=== PATIENT | female | born 1965 | race Caucasian/White ===

== ENCOUNTER 2023-11-12 18:48 | Inpatient (IN) | payer MEDICARE, OTHER, SELFPAY ==
[2023-11-12 16:36] VITALS: BP 156/105
[2023-11-12 16:53] LABS: % Basophils 0.4 % (0-2); % Eosinophils 1.1 % (0-6); % Immature Granulocytes 0.3 % (0-0.5); % Lymphocytes 13.8 % (20.5-51.1); % Monocytes 6.8 % (1.7-9.3); % Neutrophils 77.6 % (42.2-75.2); Absolute Basophils 0.1 10^3/uL (0-0.2); Absolute Eosinophils 0.2 10^3/uL (0-0.7); Absolute Lymphocytes 1.9 10^3/uL (1.2-3.4); Absolute Monocytes 0.9 10^3/uL (0.1-0.6); Absolute Neutrophils 10.5 10^3/uL (1.4-6.5); Hematocrit 39.8 % (37.0-47.0); Hemoglobin 13.5 g/dL (12.0-16.0); Mean Corp Hgb Conc. 33.9 g/dL (33.0-37.0); Mean Corpuscular Hgb 29.5 pg (27.0-31.0); Mean Corpuscular Volume 87.1 fL (81.0-99.0); Mean Platelet Volume 9.1 fL (7.4-10.4); Nucleated Red Blood Cells % 0 %; Platelet Count 339 10^3/uL (130-400); Red Blood Cell Count 4.57 10^6/uL (4.20-5.40); White Blood Cell Count 13.6 10^3/uL (4.8-10.8)
[2023-11-12 17:12] LABS: ALT (SGPT) 11 U/L (0-35); AST (SGOT) 16 U/L (14-36); Albumin 4.6 g/dl (3.5-5.0); Alkaline Phosphatase 93 U/L (38-126); Blood Urea Nitrogen 10 mg/dl (7-17); Carbon Dioxide 25 mmol/L (22-30); Chloride 102 mmol/L (98-107); Glucose 123 mg/dl (70-99); Potassium 3.7 mmol/L (3.5-5.1); Sodium 137 mmol/L (135-145); Total Bilirubin 0.5 mg/dl (0.2-1.3); Total Protein 7.3 g/dl (6.3-8.2); eGFR > 60.00
--- NOTE | 2023-11-12 17:27 | ED.GENMED ---
History of Present Illness
General
Chief Complaint: Skin Problem
Source: patient and family
Exam Limitations: none
Time Seen by Provider: 11/12/23 17:16
Nursing documentation reviewed up to this point in time: agreed with
Travel History
Have you had any contact with someone who has COVID-19?: No
Do you have any symptoms of coronavirus? Fever > 100 degrees, chills, cough, shortness of breath, sore throat, loss of taste or smell, muscle aches, or headache?: No
History of Present Illness
History of Present Illness:
58-year-old female with past medical history of hyperlipidemia hypothyroidism anxiety presenting to the emergency department today with concerns of right pointer finger redness and swelling worsening to the base of the finger mainly on the dorsal
aspect over the past 4 days was seen at the primary care office yesterday started on doxycycline and has taken 3 doses so far of oral antibiotics without any improvement. Did notice some chills and nausea today but denies any specific fevers.
Patient has significantly increased discomfort with range of motion at the MCP.
Review of Systems
Review of Systems
Allergies reviewed?: Yes
All Other Systems: ROS reviewed and negative except as documented in HPI and ROS
Phy Exam
Physical Exam
Physical Exam:
GENERAL: Alert , in no apparent distress
EYE: pupils equal and reactive
NECK: Supple, no significant adenopathy.
ENT: o/p clr, mmm.
CARDIAC: Regular rate and rhythm .
LUNGS: Clear breath sounds bilaterally, no acute respiratory distress, no wheezes/rales/rhonchi
ABDOMEN: Soft, without focal tenderness, no r/g, no cvat
NEUROLOGICAL: Alert and oriented, no focal neuro deficits
SKIN: Warm and dry, skin intact.
MUSCULOSKELETAL: Swelling to the right index finger mainly to the area between the MCP and PIP there is some redness streaking into the dorsal aspect and palmar aspect of the hand with some swelling into the hand as well. Significant decreased
range of motion at the MCP joint and PIP. No change in range of motion of the wrist. No specific pain at the flexor tendon. Well perfused.
PSYCH: Normal and appropriate interaction.
Course
Orders/Labs/Results
Orders:
Orders
11/12/23 16:45
Complete Blood Count/With Diff Urgent
Comprehensive Metabolic Panel Urgent
11/12/23 17:29
CR Hand - Right Min 3 Views Urgent
Comment:
Reason For Exam: 2nd digit swelling pain
11/12/23 17:55
Vancomycin [Vancocin] 2,000 mg 0.9% Sodium Chloride 500 ml [Nss] 500 ml IV NOW
Abnormal Lab Results
11/12/23
16:45
WBC 13.6 H 10^3/uL
(4.8-10.8)
Absolute Neuts (auto) 10.5 H 10^3/uL
(1.4-6.5)
Absolute Monos (auto) 0.9 H 10^3/uL
(0.1-0.6)
Neutrophils % 77.6 H %
(42.2-75.2)
Lymphocytes % 13.8 L %
(20.5-51.1)
Glucose 123 H mg/dl
(70-99)
11/12/23 16:45
11/12/23 16:45
Vital Signs
Initial and Last Documented VS:
Initial Vital Signs
Temp Pulse Resp BP Pulse Ox
98.8 F 86 18 156/105 98
11/12/23 16:36 11/12/23 16:36 11/12/23 16:36 11/12/23 16:36 11/12/23 16:36
Last Documented Vital Signs
Temp Pulse Resp BP Pulse Ox
98.8 F 86 18 156/105 98
11/12/23 16:36 11/12/23 16:36 11/12/23 16:36 11/12/23 16:36 11/12/23 16:36
MDM/Problems Addressed
MDM/Problems Addressed:
58-year-old female presenting to the emergency department today with concerns of worsening swelling to the right index finger over the past 4 days started doxycycline yesterday and took 3 total doses. Has had some chills and nausea but no fevers
vital signs normal upon arrival. White count 13.6. Concern for significant worsening infection despite outpatient antibiotics. Plan for IV antibiotics and admission Case discussed with orthopedics that would be following the patient. Patient
started on vancomycin with concerns of some purulence. Patient additionally will be splinted here in the ER and admitted.
*Critical Care Note
Total Time (30-74mins, 75-104mins- exclusive of procedures): Not Applicable
ED Attending Note
-
Portions of this chart may have been created with voice recognition software.� Occasional wrong word or��sound alike� substitutions may have occurred due to the inherent limitations of voice recognition software.
Discharge Plan
Departure
Patient Disposition: Admit
Date of Disposition: 11/12/23
Time of Disposition: 18:33
Admit to: Med/Surg
Admit to doctor: Rom
Presentation/result/management discussed w/ accepting MD/DO: Hospitalist
Patient with high blood pressure during this ER visit?: No
Condition: Good
Covid-19: Not Applicable
Discharge Problem:
Finger infection
Prescriptions:
No Action
clonazepam 0.5 mg tablet
0.5 mg PO HS
Patient Comments:
11/12/2023: last filled 10/10/23, 90 tabs for 90 days from [facility]
cyanocobalamin (vitamin B-12) [Vitamin B-12] 1,000 mcg Tablet
1,000 mcg PO DAILY
hydrocodone-acetaminophen 10-325 mg tablet
1 tab PO QID PRN (Reason: moderate pain)
Patient Comments:
11/12/2023: last filled 11/07/23, 120 tabs for 30 days from [facility]
citalopram 20 mg tablet
20 mg PO DAILY
baclofen 10 mg tablet
10 mg PO TID PRN (Reason: muscle spasms)
levothyroxine 50 mcg tablet
50 mcg PO DAILY@0700
rosuvastatin 10 mg tablet
10 mg PO DAILY
biotin 1 mg Tablet
1 mg PO DAILY
turmeric 400 mg Capsule
400 mg PO DAILY
Vitamin K
1 tab PO DAILY
Referrals:
Tiera Riley DO [Family Provider] -
Interventions
Interventions:
*Risk Screen - Suicide Last Done: 11/12/23 16:36
*General Assessment Last Done: 11/12/23 16:36
*Neglect/Abuse Screening Last Done: 11/12/23 16:36
*ED COVID-19 Vaccine History Last Done: 11/12/23 17:46
--- NOTE | 2023-11-12 18:12 | HPS.HSE ---
Addendum entered and electronically signed by Elmo Heller MD 11/12/23 18:47:
I saw and examined the patient.
The [employer] or PA's note was reviewed and I agree with the note.
Comment:
58-year-old female with past medical history of hyperlipidemia, hypothyroidism, anxiety presenting for right index finger redness and swelling.� Began on Saturday, with some redness and swelling, worsening despite antibiotics that were started
yesterday (doxycycline).� Further, symptoms of nausea, chills.� Able to move finger with no difficulty.� Swelling to right index finger, , Erythema to the dorsal aspect and palmar aspect of the hand.� Tenderness upon palpation.� Afebrile,
normotensive, pulse 86.� White count�13.6..� No imaging yet.� Plan�vancomycin, Ortho and ID consult.� Blood cultures.� IVF as needed.� CT hand w/ cont
Original Note:
Family Physician
-
Family Physician: Tiera Riley
Chief Complaint
-
right point finger wound
History of Present Illness
58-year-old female with past medical history of hyperlipidemia hypothyroidism anxiety,DJD presented to us with right pointer finger redness and swelling for past four days. stated worsening. denied any trauma. it started off as a pimple and got
worse. she soaked her finger in Epsom salt with no relief. she started taking doxycycline since yesterday with no relief in her symptoms. since on doxy, stated nausea. � Did notice some chills, denied fever. denied MENDIOLA, dizzy or syncopal
episode.denied chest pain, sob.denied abdominal pain, v, diarrhea. denied dysuria or hematuria.
started on vanco. admitting for further management.
Medical History
Past Medical History
Past Medical History: Reports Other
Additional Past Medical History:
Hypertension
Hyperlipidemia
DJD
Insomnia
Depression
Hypothyroidism
Past Surgical History: Reports Other
Additional Past Surgical History:
Cervical surgery
Social History
Tobacco: Former Smoker
Alcohol: None
Drug: None
Personal:
Living: With Family
Family History
Family History: Not pertinent
Allergies / Home Medications
Allergies reflects when Allergies were last updated in [facility].
Home Medications with original date entered in [facility]
Allergy/Medication List:
Allergies
Allergy/AdvReac Type Severity Reaction Status Date / Time
cortisone Allergy Unknown Unknown Verified 11/12/23 16:40
Penicillins Allergy Unknown Unknown Verified 11/12/23 16:40
Home Medications
Vitamin K 1 tab PO DAILY 11/12/23
baclofen 10 mg tablet 10 mg PO TID PRN muscle spasms 11/12/23
biotin 1 mg tablet 1 mg PO DAILY 11/12/23
citalopram 20 mg tablet 20 mg PO DAILY 11/12/23
clonazepam 0.5 mg tablet 0.5 mg PO HS 11/12/23
cyanocobalamin (vitamin B-12) 1,000 mcg tablet (Vitamin B-12) 1,000 mcg PO DAILY 11/12/23
hydrocodone 10 mg-acetaminophen 325 mg tablet 1 tab PO QID PRN moderate pain 11/12/23
levothyroxine 50 mcg tablet 50 mcg PO DAILY@0700 11/12/23
rosuvastatin 10 mg tablet 10 mg PO DAILY 11/12/23
turmeric 400 mg capsule 400 mg PO DAILY 11/12/23
Review of Systems
-
Constitutional: Reports No Symptoms
EENT: Reports No Symptoms
Respiratory: Reports No Symptoms
Cardiac: Reports No Symptoms
Abdomen/GI: Reports No Symptoms
: Reports No Symptoms
Musculoskeletal: Reports No Symptoms
Skin: Reports Other (Right pointer finger red and swollen)
Neurological: Reports No Symptoms
Endocrine: Reports No Symptoms
Hematologic/Lymphatic: Reports No Symptoms
Psych: Reports No Symptoms
Physical Exam
Vital Signs
Vital Signs
Temp Pulse Resp BP Pulse Ox
98.8 F 86 18 156/105 98
11/12/23 16:36 11/12/23 16:36 11/12/23 16:36 11/12/23 16:36 11/12/23 16:36
Physical Exam
General: Well Developed, Well Nourished and No Apparent Distress
HEENT: NormoCephalic, Moist mucous membranes and Atraumatic
Respiratory: Clear
Cardiac: S1/S2 and Regular Rhythm; No Murmur or Rub
GI: Soft, Non Tender, Non Distended and Normal Bowel Sounds; No Organomegaly
Rectal: Deferred by Provider
Musculoskeletal: No Clubbing, No Cyanosis and No Edema
Skin: Rash and Other (Swelling to right index finger, redness streaking into the dorsal aspect of the palm and hand)
Neuro: Nonfocal/grossly intact
Psych: Calm
Laboratory Results
-
11/12/23 16:45
11/12/23 16:45
Laboratory Results
Total Bilirubin 0.5 mg/dl (0.2-1.3) 11/12/23 16:45
AST 16 U/L (14-36) 11/12/23 16:45
ALT 11 U/L (0-35) 11/12/23 16:45
Alkaline Phosphatase 93 U/L (38-126) 11/12/23 16:45
Data Reviewed
-
Lab Data: Labs Reviewed by me
Impression/Plan
-
# Right second digit infection/cellulitis
-Failed outpatient therapy
-WBC 13.6, afebrile
-Vancomycin
-X-ray of right hand
-Tylenol as needed for fever and pain
-Orthopedics consulted
# DJD/muscle spasm
-Baclofen continued
-Hydrocodone continued
# Depression/anxiety
-Citalopram and clonazepam continued
# Hypothyroidism
-Levothyroxine
# Hyperlipidemia
-Statin
# DVT prophylaxis
-Lovenox subcu
# CODE STATUS
-Full code
[2023-11-12 19:08] VITALS: BMI 28.0
[2023-11-12] MEDS: VANCOCIN 540 MG IV (19:29)
[2023-11-12] MEDS: ZOFRAN 4 MG IV (21:22)
[2023-11-12 22:24] VITALS: BP 183/113; BMI 26.2
--- NOTE | 2023-11-12 22:58 | PHA.VAN.IN ---
Assessment
- Assessment
Renal Function: Unknown baseline
Concomitant Antimicrobials: NONE
- Previous Dosing Experience
Previous Regimen: NONE
AUC Dosing Plan
- Dosing Variables
Dosing Weight (kg): 69
Dosing CrCl (ml/min): 87
Vd coefficient (L/kg): 0.7
- Empiric Dosing
Initial / Loading Dose: 2GM
Maintenance Regimen: 750MG IV Q12H
Estimated AUC (mcg*h/mL): 421
Estimated Peak (mcg*h/mL): 25.8
Estimated Trough (mcg/ml): 11.1
Estimated Half Life (H): 9.0
Pharmacokinetics Vancomycin I
- -
Patient Age: 58
Patient Sex: Female
Vancomycin Day #: 1
Indication: Skin And Soft Tissue ([R] HAND INFECTION )
Requesting Provider: GEOFF
Pertinent Antimicrobial Allergies:
Allergies
Penicillins Allergy (Verified 11/12/23 18:48)
Unknown
Height / Weight:
Height 5 ft 4 in
Actual Weight 69.088 kg
Pertinent Past Medical History: FAILED OUTPT [place]
- Vital Signs / Lab Results
Temp Pulse Resp BP Pulse Ox
98.2 F 85 18 183/113 96
11/12/23 22:24 11/12/23 22:24 11/12/23 22:24 11/12/23 22:24 11/12/23 22:24
Lab Results - Hematology
11/12/23
16:45
WBC 13.6 H
Lab Results - Chemistry
11/12/23
16:45
BUN 10
Creatinine 0.6
Albumin 4.6
[2023-11-12] MEDS: KLONOPIN 0.5 MG PO (23:05)
[2023-11-12] MEDS: NORCO 7.5/325 1 TABLET PO (23:05)
[2023-11-12 23:45] VITALS: BP 149/97
--- NOTE | 2023-11-13 01:16 | PTCARENOTE ---
Pt aaox3 able to make her needs known, pt very anxious at this time, pt was provided with emotional & psychological support. Plan of care was provided to pt. Right arm elevated on a pillow,prn pain meds given. Pt was encouraged to call for help as
needed.
[2023-11-13] MEDS: TYLENOL 650 MG PO ×3 (03:15→20:17)
[2023-11-13] MEDS: SYNTHROID 50 MCG PO (06:29)
[2023-11-13] MEDS: VANCOCIN 150 IV ×2 (06:30→17:54)
[2023-11-13 07:34] LABS: Hematocrit 38.3 % (37.0-47.0); Hemoglobin 12.7 g/dL (12.0-16.0); Mean Corp Hgb Conc. 33.2 g/dL (33.0-37.0); Mean Corpuscular Hgb 28.7 pg (27.0-31.0); Mean Corpuscular Volume 86.7 fL (81.0-99.0); Mean Platelet Volume 9.3 fL (7.4-10.4); Platelet Count 311 10^3/uL (130-400); Red Blood Cell Count 4.42 10^6/uL (4.20-5.40); Red Cell Dist. Width 13.1 % (11.5-14.5); White Blood Cell Count 10.6 10^3/uL (4.8-10.8)
[2023-11-13 07:35] VITALS: BP 158/100
[2023-11-13 07:42] LABS: Blood Urea Nitrogen 8 mg/dl (7-17); Calcium 9.7 mg/dl (8.4-10.2); Carbon Dioxide 28 mmol/L (22-30); Chloride 102 mmol/L (98-107); Estimated Creatinine Clearance 87 ml/min; Glucose 130 mg/dl (70-99); Potassium 3.7 mmol/L (3.5-5.1); Sodium 138 mmol/L (135-145); eGFR > 60.00
[2023-11-13] MEDS: NORCO 7.5/325 1 TABLET PO ×2 (08:03→14:29)
[2023-11-13] MEDS: CELEXA 20 MG PO (08:03)
[2023-11-13] MEDS: LIORESAL 10 MG PO ×3 (08:03→23:58)
[2023-11-13] MEDS: CRESTOR 10 MG PO (08:03)
--- NOTE | 2023-11-13 08:26 | W.PN.UPDATE ---
Update Note
Progress Note Update
Patient seen on AM rounds. Full consult note to follow.
Directed exam of right hand reveals index finger with significant edema and erythema over the dorsal aspect of the finger. Small lesion over the proximal phalanx, but no active drainage or purulence able to be expressed. Tenderness about the PIP
joint. Limited ability to flex finger secondary to swelling and pain.
CT scan R hand 11/12/23 FINDINGS/IMPRESSION:
A low-density fluid collection in the soft tissues radial to the second metacarpophalangeal joint measures 1.6 x 0.7 x 1.3 cm (series 202, image 18), and is most compatible with a soft tissue abscess. Large amount of soft tissue swelling about the
proximal second finger, consistent with cellulitis.
No acute fracture or dislocation. The joint spaces are maintained. No osseous destructive changes to suggest acute osteomyelitis.
No significant joint effusion by CT.
The flexor and extensor tendons are grossly intact.
Patient's finger continues to be quite swollen and painful. She denies any significant improvement overnight. She also endorses nausea.
--Continue splint for soft tissue rest.
--Continue antibiotic per primary.
--continue pain control per primary.
--I have reached out to our hand specialists to review CT scan and for further recommendations.
--- NOTE | 2023-11-13 08:54 | PHA.VAN.FU ---
Vancomycin Assessment / Plan
- Assessment
Renal Function: Stable
WBC's are: Trending Down
In the past 24 hrs, patient has been: Afebrile
- Dosing Plan
Continue: Vanc 750mg Q12H
- Monitoring Plan
No level(s) ordered at this time: consider levels in next few days
- Follow Up
Pharmacy will continue to follow.
Vancomycin Follow UP
- -
Patient Age: 58
Patient Sex: Female
Vancomycin Day #: 2
Indication: Skin And Soft Tissue
Requesting Provider: Jimbo Levin
Pertinent Antimicrobial Allergies:
Penicillins - Unknown
Height / Weight:
Height 5 ft 4 in
Actual Weight 69.088 kg
- Vital Signs / Lab Results
Temp Pulse Resp BP Pulse Ox
97.9 F 93 18 158/100 96
11/13/23 07:35 11/13/23 07:35 11/13/23 07:35 11/13/23 07:35 11/13/23 08:00
Lab Results - Hematology
11/12/23 11/13/23
16:45 06:55
WBC 13.6 H 10.6
Lab Results - Chemistry
11/12/23 11/13/23
16:45 06:55
BUN 10 8
Creatinine 0.6 0.6
Estimated Creat Clear 87
Albumin 4.6
--- NOTE | 2023-11-13 09:14 | WOUNDNOTE ---
R HAND/INDEX FINGER
--- NOTE | 2023-11-13 09:14 | WOUNDNOTE ---
R INDEX FINGER (SIDE OF)
--- NOTE | 2023-11-13 09:15 | WOUNDNOTE ---
[facility] RN note: Patient admitted with R hand infection. Patient is .
See H&P for complete history.
PMH: anxiety, DJD, HTN, depression, cervical surgery.
Wound Location and type/assessment: Patient admitted with: R index finger swelling and erythema with dry white scab. R finger CT scan report states soft tissue abscess, negative for fracture, negative for OM. Patient has finger sensation. +R radial
pulse. Patient stated R index finger started as a pimple. She has history of eczema.
Appetite: on a low cholesterol diet
Pressure redistribution devices in place: Centrella Max air bed. Patient is ambulatory.
Plan: R index finger splint reapplied. Finger to be managed by ortho service. Instructed patient frequent hand elevation with pillow. t/c [facility] and ordered extra pillows from [facility]. Discussed with NISHANT Wall. t/c [facility] and ordered Remedy moisture cream for
her dry skin.
Will follow peripherally as needed.
--- NOTE | 2023-11-13 09:47 | CON.ORTHO ---
Consultation
-
Date/Time Consultation Requested: 11/12/2023; time unknown
Date/Time Consultation Performed: 11/13/2023; 0730
Requesting Provider: unknown
Performing Provider: Romina Nichole PA-C for Dr. Madison Dejesus
Reason for Consultation: Right index finger infection
Consultation - Orthopedics
History
Ms. Moseley is a 58 year old female with hyperlipidemia hypothyroidism, anxiety and DJD who presented to the ED yesterday due to redness, swelling and pain in her right index finger. She reports on Thursday 11/09, she noted a small 'pimple' on the
dorsal aspect of her finger. She reports she soaked the hand in epsom salts initially, but her symptoms continued to worsen. She reports she popped the pimple and there was serous drainage. She has not noticed drainage, bleeding or purulence since.
She presented to her PCP on Friday 11/10 and was placed on doxycycline. She stopped the medication due to stomach upset. She reports her symptoms became progressively worse over the last several days which prompted her to present to the ED. She
denies any injuries or animal bites to the finger. She has been on IV vancomycin overnight, but denies any improvement in her symptoms. She endorses nausea from the medications, but denies fever, chills or other constitutional symptoms.
Allergies / Home Medications
Allergy/AdvReac Type Severity Reaction Status Date / Time
cortisone Allergy Unknown Verified 11/12/23 18:48
Penicillins Allergy Unknown Verified 11/12/23 18:48
Medication Instructions Recorded
Vitamin K 1 tab PO DAILY Supplement 11/12/23
baclofen 10 mg tablet 10 mg PO TID PRN muscle spasms 11/12/23
biotin 1 mg tablet 1 mg PO DAILY Supplement 11/12/23
citalopram 20 mg tablet 20 mg PO DAILY depression 11/12/23
clonazepam 0.5 mg tablet 0.5 mg PO HS anxiety 11/12/23
cyanocobalamin (vitamin B-12) 1,000 mcg PO DAILY Supplement 11/12/23
1,000 mcg tablet (Vitamin B-12)
hydrocodone 10 mg-acetaminophen 1 tab PO QID PRN moderate pain 11/12/23
325 mg tablet
levothyroxine 50 mcg tablet 50 mcg PO DAILY@0700 hypothyroidism 11/12/23
rosuvastatin 10 mg tablet 10 mg PO DAILY High Cholesterol 11/12/23
turmeric 400 mg capsule 400 mg PO DAILY Supplement 11/12/23
Vital Signs / Lab Results
Temp Pulse Resp BP Pulse Ox
97.9 F 93 18 158/100 96
11/13/23 07:35 11/13/23 07:35 11/13/23 07:35 11/13/23 07:35 11/13/23 08:00
11/13/23 06:55
11/13/23 06:55
XR Right Hand 11/12/23 FINDINGS/IMPRESSION:
No acute fracture or dislocation. Soft tissue swelling of the second finger. Splint material at the ventral aspect of the second finger. No radiopaque foreign body or soft tissue gas.
CT scan right hand 11/12/23 FINDINGS/IMPRESSION:
A low-density fluid collection in the soft tissues radial to the second metacarpophalangeal joint measures 1.6 x 0.7 x 1.3 cm (series 202, image 18), and is most compatible with a soft tissue abscess. Large amount of soft tissue swelling about the
proximal second finger, consistent with cellulitis.
No acute fracture or dislocation. The joint spaces are maintained. No osseous destructive changes to suggest acute osteomyelitis.
No significant joint effusion by CT.
The flexor and extensor tendons are grossly intact.
Physical Exam:
General: well appearing female in NAD, AAOx3
Head: atraumatic, normocephalic
Eyes: sclera anicteric
Ears: normal hearing
Heart: no edema
Lungs: normal work of breathing, no audible wheezing
Right hand: Small lesion over the dorsal aspect of the proximal phalanx. No drainage or purulence able to be expressed. Significant edema throughout the finger, and erythema over the dorsal aspect of the finger. Flexion limited secondary to swelling
and pain. Full extension. Sensation intact to light touch. Capillary refill <2 seconds.
Assessment / Plan
Right index finger infection/cellulitis
--Ms. Green symptoms and exam today were discussed with our hand specialists who recommend continued non-operative management with IV antibiotics. We will continue to monitor her symptoms overnight and reevaluate her finger in the morning. Should
her symptoms fail to improve or worsen overnight, we may consider surgical washout.
--Continue antibiotics per primary.
--Continue current pain management regimen.
--Encouraged gentle ROM of finger as tolerated. May be weight bearing as tolerated to right upper extremity.
--Patient may begin warm soaks TID.
--NPO after midnight in the event that she needs OR tomorrow.
--Orthopedics will continue to follow along.
--- NOTE | 2023-11-13 09:51 | CON.ID ---
Consultation
-
Date/Time Consultation Requested: 11/12/23 22:17
Date/Time Consultation Performed: 11/13/23 9:56
Requesting Provider: Ollie
Performing Provider: Dr Do
Reason for Consultation: right second digit wound
Chief Complaint / Past History
Chief Complaint
right second finger redness, swelling
History of Present Illness
Ms Moseley is a 58 year old female with history of DJD who presented here yesterday for right second digit initially with 'pimple' then with generalized redness, swelling for 4 days. She soaked her finger in epsone salts without improvement. She was
started on doxycycline empirically without improvement. Developd nausea on the doxycycline. She progressed to having chills but no fevers. Denies: headache, chest pain, shortness of breath, abdominal pain, nausea, vomiting, diarrhea, dysuria or
hematuria.
Since arrival here she is afebrile, hypertensive, wbc initially 13.5 now 10.6, hgb 12.7, plt 311, L shift noted on arrival, eos were present, cr 0.6, t bili 0.5, ast 16, alt 11, alk phos 93, Ct upper extremity: small abscess, swelling, no evidence
of osteomyelitis, started on vancomcin. Orthopedics has been consulted. Finger currently splinted
Past History
Additional Past Medical History:
Hypertension
Hyperlipidemia
DJD
Insomnia
Depression
Hypothyroidism
Additional Past Surgical History:
Cervical surgery
Allergy History:
cortisone Allergy (Verified 11/12/23 18:48)
Unknown
Penicillins Allergy (Verified 11/12/23 18:48)
Unknown
Medications Reviewed: Yes
Social History
Tobacco: Former Smoker
Alcohol: None
Drug: None
Family History
Family History: Not Pertinent
Review of Systems
Review of Systems
General: Chills; Negative Fever
All systems: All other systems were reviewed and were negative
Vital Signs
Temp Pulse Resp BP Pulse Ox
97.9 F 93 18 158/100 96
11/13/23 07:35 11/13/23 07:35 11/13/23 07:35 11/13/23 07:35 11/13/23 08:00
Physical Exam
Physical Exam
Constitutional: No Acute Distress
Cardiovascular: Regular Rate and S1/S2; Negative Murmur or Rub
Pulmonary: Clear and Symmetric; Negative Wheezes, Rales or Rhonchi
Gastrointestinal: Soft, Non Tender, Non Distended and Normal Bowel Sounds
Extremities: Other (right second digit marked swelling, warmth and erythema; no discrete fluctuant lesion)
Skin: Warm and Dry; Negative Rash or Jaundice
Lab / Diagnostic Study Results
11/13/23 06:55
11/13/23 06:55
Abs Immat Gran (auto) 0.0 10^3/uL (0-0.05) 11/12/23 16:45
Absolute Neuts (auto) 10.5 10^3/uL (1.4-6.5) H 11/12/23 16:45
Absolute Lymphs (auto) 1.9 10^3/uL (1.2-3.4) 11/12/23 16:45
Absolute Monos (auto) 0.9 10^3/uL (0.1-0.6) H 11/12/23 16:45
Absolute Basos (auto) 0.1 10^3/uL (0-0.2) 11/12/23 16:45
Immature Gran % 0.3 % (0-0.5) 11/12/23 16:45
Neutrophils % 77.6 % (42.2-75.2) H 11/12/23 16:45
Lymphocytes % 13.8 % (20.5-51.1) L 11/12/23 16:45
Monocytes % 6.8 % (1.7-9.3) 11/12/23 16:45
Eosinophils % 1.1 % (0-6) 11/12/23 16:45
Basophils % 0.4 % (0-2) 11/12/23 16:45
Assessment / Plan
Paronychia with abscess
Cellulitis
H/o allergy to penicillin - as a child, not retried
- abscess is small <2 cm
- blood cultures x2
- warm compresses and elevation
- if finger begins to drain on its own then RN will obtain wound culture
- continue vancomycin
- add cefazolin
- appreciate orthopedics assistance.
[2023-11-13] MEDS: ANCEF 10 IV ×2 (11:49→20:18)
[2023-11-13] MEDS: ZOFRAN 4 MG IV (11:57)
--- NOTE | 2023-11-13 14:21 | W.PN.HOSP.TC ---
Today's Communication/Plan
-
abx
f/u cultures
NPO for possible OR tomorrow
supportive care, warm compresses
Assessment / Plan
Assessment / Plan
Physical Exam
Constitutional: No Acute Distress
Cardiovascular: Regular Rate and S1/S2; Negative Murmur or Rub
Pulmonary: Clear and Symmetric; Negative Wheezes, Rales or Rhonchi
Gastrointestinal: Soft, Non Tender, Non Distended and Normal Bowel Sounds
Extremities: Other (right second digit marked swelling, warmth and erythema; no discrete fluctuant lesion)
Skin: Warm and Dry; Negative Rash or Jaundice
#Paronychia with abscess
#Cellulitis
-Ortho, ID consulted
-Cont vanco
-Add cefazolin
-Warm compresses, elevation
-F/u ortho for possible I&D
-NPO at [place] for possible I&D
# DJD/muscle spasm
-Baclofen continued
-Hydrocodone continued
# Depression/anxiety
-Citalopram and clonazepam continued
# Hypothyroidism
-Levothyroxine
# Hyperlipidemia
-Statin
# DVT prophylaxis
-Lovenox subcu
# CODE STATUS
-Full code
Anticipated Discharge: > 48 hours
Subjective/Interval History
-
Date of Service: November 13, [address]
Objective Data
-
Labs:
Laboratory Results
11/13/23
06:55
WBC 10.6
Hgb 12.7
Hct 38.3
Plt Count 311
Sodium 138
Potassium 3.7
Chloride 102
Carbon Dioxide 28
BUN 8
Creatinine 0.6
Glucose 130 H
Calcium 9.7
Vital Signs:
Vital Signs
Temp Pulse Resp BP Pulse Ox
97.9 F 93 18 158/100 96
11/13/23 07:35 11/13/23 07:35 11/13/23 07:35 11/13/23 07:35 11/13/23 08:00
I&O
11/12/23 11/13/23 11/14/23
06:59 06:59 06:59
Intake Total 0 / 0
Balance 0 / 0
Review of Systems
-
History Source: Patient
All other systems: Not reviewed unless documented
Data Reviewed
-
CT Scan: Image personally visualized and interpreted and Report Reviewed by me
Labs: Labs Reviewed by me
--- NOTE | 2023-11-13 14:29 | CM ---
Alert awake oriented patient who lives with Zain her in a split story home with 2 step to enter and 4 steps to bed room . She is independent in driving and all activities of daily living.Offered VN she declined. No adaptive devices.
No SNF/VN hx
Pharmacy [facility]
PCP Dr Tiera Riley
PLAN Home no needs
[2023-11-13 15:10] VITALS: BP 125/86
[2023-11-13] MEDS: TIGAN 200 MG IM (16:46)
[2023-11-13] MEDS: LOVENOX 40 MG SC (17:55)
[2023-11-13 23:12] VITALS: BP 161/108
[2023-11-13] MEDS: KLONOPIN 0.5 MG PO (23:58)
[2023-11-14] MEDS: NORCO 7.5/325 1 TABLET PO ×4 (00:09→20:46)
[2023-11-14 00:15] VITALS: BP 159/98
[2023-11-14] MEDS: ANCEF 10 IV ×2 (04:53→12:29)
[2023-11-14] MEDS: TIGAN 200 MG IM ×3 (05:51→20:32)
[2023-11-14 06:09] LABS: Hematocrit 38.5 % (37.0-47.0); Hemoglobin 12.8 g/dL (12.0-16.0); Mean Corp Hgb Conc. 33.2 g/dL (33.0-37.0); Mean Corpuscular Hgb 28.8 pg (27.0-31.0); Mean Corpuscular Volume 86.7 fL (81.0-99.0); Mean Platelet Volume 9.1 fL (7.4-10.4); Platelet Count 339 10^3/uL (130-400); Red Blood Cell Count 4.44 10^6/uL (4.20-5.40); Red Cell Dist. Width 13.1 % (11.5-14.5); White Blood Cell Count 10.1 10^3/uL (4.8-10.8)
[2023-11-14] MEDS: VANCOCIN 150 IV ×2 (06:21→18:10)
[2023-11-14] MEDS: SYNTHROID 50 MCG PO (06:22)
[2023-11-14] MEDS: TYLENOL 650 MG PO ×2 (06:22→15:14)
[2023-11-14 06:36] LABS: Blood Urea Nitrogen 9 mg/dl (7-17); Calcium 9.8 mg/dl (8.4-10.2); Carbon Dioxide 28 mmol/L (22-30); Chloride 102 mmol/L (98-107); Estimated Creatinine Clearance 87 ml/min; Glucose 115 mg/dl (70-99); Sodium 139 mmol/L (135-145); eGFR > 60.00
[2023-11-14 06:41] LABS: Potassium 3.4 mmol/L (3.5-5.1)
[2023-11-14 07:43] VITALS: BP 150/112
[2023-11-14] MEDS: CELEXA 20 MG PO (07:44)
[2023-11-14] MEDS: CRESTOR 10 MG PO (07:44)
[2023-11-14] MEDS: LIORESAL 10 MG PO ×3 (07:48→20:33)
--- NOTE | 2023-11-14 08:28 | PHA.VAN.FU ---
Vancomycin Assessment / Plan
- Assessment
Renal Function: Stable
WBC's are: WNL
In the past 24 hrs, patient has been: Afebrile
Concomitant Antimicrobials: cefazolin
- Dosing Plan
Continue: Vanc 750mg Q12H
- Monitoring Plan
Peak Level: 11/13 20:30
Trough Level: 11/14 05:30
Monitoring Comments: levels to be drawn after 4th maintenance dose
- Follow Up
Pharmacy will continue to follow.
Vancomycin Follow UP
- -
Patient Age: 58
Patient Sex: Female
Vancomycin Day #: 3
Indication: Skin And Soft Tissue
Requesting Provider: Jimbo Levin / [place]
Pertinent Antimicrobial Allergies:
Penicillins - Unknown
Height / Weight:
Height 5 ft 4 in
Actual Weight 69.088 kg
- Vital Signs / Lab Results
Temp Pulse Resp BP Pulse Ox
97.8 F 94 18 159/98 97
11/13/23 23:12 11/14/23 00:15 11/13/23 23:12 11/14/23 00:15 11/13/23 23:12
Lab Results - Hematology
11/12/23 11/13/23 11/14/23
16:45 06:55 05:46
WBC 13.6 H 10.6 10.1
Lab Results - Chemistry
11/12/23 11/13/23 11/14/23
16:45 06:55 05:46
BUN 10 8 9
Creatinine 0.6 0.6 0.6
Estimated Creat Clear 87 87
Albumin 4.6
Microbiology Results
11/13/23 13:57 Gram Stain - Preliminary
Hand - Right
[2023-11-14] MEDS: KCL 270 MEQ IV (09:35)
--- NOTE | 2023-11-14 10:59 | PN.CDI ---
CDI
- -
CDI:
Physician Documentation Request
Admit Date: 11/12/23 18:48
Dear Doctor Arron,
Patient admitted with cellulitis.
H&P: 'Home Medications: hydrocodone 10 mg-acetaminophen 325 mg tablet 1 tab PO QID PRN moderate pain 11/12/23'
11/12 Hospitalist PN: 'DJD/muscle spasm...Hydrocodone continued'
MAR administrations of Hydrocodone Bitart 7.5mg / Acetaminophen 325mg
11/11: 23:05
11/12: 08:03, 14:29
11/13: 00:09, 07:48
If possible, please provide further specificity as outlined below:
Chronic Pain with opioid dependence
Opioid use
Other
Use of terms such as suspected, likely, concern for, or probable (associated with a specific diagnosis that is being evaluated, monitored, or treated as if it exists) are acceptable and can be coded in the inpatient setting, when documented at the
time of discharge.
Thank you,
Mimi Orellana RN, BSN
CDI Specialist
Available via [place] text
Please use your independent medical judgment in providing your response.
--- NOTE | 2023-11-14 12:15 | W.PN.UPDATE ---
Update Note
Progress Note Update
patient extremely uncomfortable this morning. Right index finger subjectively no better. WBC remains WNL. Afeb. Surgical consent has been obtained for possible OR tomorrow. Discussed with the patient about performing a bedside I&D. she is more
than willing to try that right now. Consent was obtained and bedside I&D performed sterilely to both abscess areas of the dorsal right index finger. Significant purulent material expressed. Will continue IV Vanco. will continue warm water soaks
3 times daily with soft dressing between. tentatively posted to the OR schedule for [address] Loving's direction. Will reassess on rounds tomorrow. Patient is NPO pMN
[2023-11-14] MEDS: KCL ELIXIR 40 MEQ PO ×2 (12:28→15:15)
[2023-11-14 13:43] VITALS: BP 162/98
--- NOTE | 2023-11-14 14:30 | PTCARENOTE ---
Transferred patient to [facility] for contact precautions. All belongings with patient and spouse.
[2023-11-14 14:41] VITALS: BP 148/100
--- NOTE | 2023-11-14 15:05 | W.PN.HOSP.TC ---
Addendum entered and electronically signed by Elmo Heller MD 11/14/23 16:49:
Chronic Pain with opioid dependence
Original Note:
Today's Communication/Plan
-
f/u cultures
cont abx
warm water soaks 3 times daily
possible OR tomorrow
Assessment / Plan
Assessment / Plan
Physical Exam
Constitutional: No Acute Distress
Cardiovascular: Regular Rate and S1/S2; Negative Murmur or Rub
Pulmonary: Clear and Symmetric; Negative Wheezes, Rales or Rhonchi
Gastrointestinal: Soft, Non Tender, Non Distended and Normal Bowel Sounds
Extremities: Other (right second digit marked swelling, warmth and erythema; no discrete fluctuant lesion)
Skin: Warm and Dry; Negative Rash or Jaundice
#Paronychia with abscess
#Cellulitis
-Ortho, ID consulted
-Cont vanco
-Add cefazolin
-Warm compresses, elevation
-F/u ortho for possible I&D tomorrow in the OR
-NPO at [place] for possible I&D
-F/u cultures
-ill continue warm water soaks 3 times daily with soft dressing between
#Hypokalemia
-monitor and replete
# DJD/muscle spasm
-Baclofen continued
-Hydrocodone continued
# Depression/anxiety
-Citalopram and clonazepam continued
# Hypothyroidism
-Levothyroxine
# Hyperlipidemia
-Statin
# DVT prophylaxis
-Lovenox subcu
# CODE STATUS
-Full code
Anticipated Discharge: > 48 hours
Subjective/Interval History
-
Date of Service: November 14, 2023
Finger subjectively unchanged
Objective Data
-
Labs:
Laboratory Results
11/14/23
05:46
WBC 10.1
Hgb 12.8
Hct 38.5
Plt Count 339
Sodium 139
Potassium 3.4 L
Chloride 102
Carbon Dioxide 28
BUN 9
Creatinine 0.6
Glucose 115 H
Calcium 9.8
Vital Signs:
Vital Signs
Temp Pulse Resp BP Pulse Ox
98.3 F 90 18 148/100 99
11/14/23 14:41 11/14/23 14:41 11/14/23 14:41 11/14/23 14:41 11/14/23 14:41
I&O
11/13/23 11/14/23 11/15/23
06:59 06:59 06:59
Intake Total 0 / 0 900 / 900
Balance 0 / 0 900 / 900
Review of Systems
-
History Source: Patient
All other systems: Not reviewed unless documented
Data Reviewed
-
CT Scan: Image personally visualized and interpreted and Report Reviewed by me
Labs: Labs Reviewed by me
--- NOTE | 2023-11-14 17:27 | W.PN.ID1 ---
Date of Service
Date of Service: November 14, 2023
Today's Communication
continue vancomycin, stop cefazolin
Assessment / Plan
Paronychia with abscess
Cellulitis
H/o allergy to penicillin - as a child, not retried
- s/p bedside I&D with improvement, may go for washout tomorrow - I would be in support of formal washout
- blood cultures x2
- wound culture with MRSA - sensi pending
- continue vancomycin
- appreciate orthopedics assistance.
Chief Complaint
-: Other (paronichya)
Subjective / Review of Systems
afebrile
bp stable
much better color
pain better
reports great relief with bedside I&D
Vital Signs / Physical Exam
Vital Signs
Vital Signs
Temp Pulse Resp BP Pulse Ox
98.3 F 90 18 148/100 99
11/14/23 14:41 11/14/23 14:41 11/14/23 14:41 11/14/23 14:41 11/14/23 14:41
Physical Exam
Constitutional: No Acute Distress
Cardiovascular: Regular Rate and S1/S2; Negative Murmur or Rub
Pulmonary: Clear and Symmetric; Negative Wheezes or Rales
Gastrointestinal: Soft, Non Tender, Non Distended and Normal Bowel Sounds
Extremities: Other (dressing clean, dry, intact)
Skin: Warm and Dry; Negative Rash or Jaundice
Objective Data
Lab Data
Lab Results
11/14/23 05:46
11/14/23 05:46
Estimated Creat Clear 87 ml/min 11/14/23 05:46
Total Bilirubin 0.5 mg/dl (0.2-1.3) 11/12/23 16:45
AST 16 U/L (14-36) 03/12/24 16:45
ALT 11 U/L (0-35) 11/12/23 16:45
Alkaline Phosphatase 93 U/L (38-126) 11/12/23 16:45
Most recent labs reviewed.
Micro Results:
11/13/23 11:39 Blood Culture - Preliminary
Blood/Venous No Growth in 24 hours- Final report to follow
11/13/23 13:57 Wound Culture - Preliminary
Hand - Right Staph aureus MRSA
Gram Stain - Preliminary
11/13/23 10:57 Blood Culture - Preliminary
Blood/Venous No Growth in 24 hours- Final report to follow
[2023-11-14] MEDS: LOVENOX 40 MG SC (18:10)
[2023-11-14] MEDS: KLONOPIN 0.5 MG PO (20:33)
[2023-11-14 23:05] VITALS: BP 127/77
[2023-11-15] VITALS (11 sets, daily range): BP systolic 120–175; BP diastolic 78–119
[2023-11-15] MEDS: NORCO 7.5/325 1 TABLET PO ×4 (04:18→15:53)
[2023-11-15 06:13] LABS: Hematocrit 39.2 % (37.0-47.0); Hemoglobin 13.1 g/dL (12.0-16.0); Mean Corp Hgb Conc. 33.4 g/dL (33.0-37.0); Mean Corpuscular Volume 86.9 fL (81.0-99.0); Mean Platelet Volume 9.3 fL (7.4-10.4); Platelet Count 346 10^3/uL (130-400); Red Blood Cell Count 4.51 10^6/uL (4.20-5.40); Red Cell Dist. Width 13.1 % (11.5-14.5); White Blood Cell Count 9.5 10^3/uL (4.8-10.8)
[2023-11-15 06:34] LABS: Blood Urea Nitrogen 9 mg/dl (7-17); Calcium 9.5 mg/dl (8.4-10.2); Carbon Dioxide 26 mmol/L (22-30); Chloride 105 mmol/L (98-107); Estimated Creatinine Clearance 87 ml/min; Glucose 101 mg/dl (70-99); Potassium 3.8 mmol/L (3.5-5.1); Sodium 138 mmol/L (135-145); eGFR > 60.00
[2023-11-15] MEDS: SYNTHROID 50 MCG PO (06:34)
[2023-11-15 06:35] LABS: Vancomycin Trough 10.9 ug/ml (5-20)
[2023-11-15] MEDS: VANCOCIN 150 IV ×2 (07:08→17:31)
[2023-11-15] MEDS: LIORESAL 10 MG PO ×3 (07:43→21:37)
[2023-11-15] MEDS: CRESTOR 10 MG PO (07:44)
[2023-11-15] MEDS: CELEXA 20 MG PO (07:44)
[2023-11-15] MEDS: TIGAN 200 MG IM (07:49)
--- NOTE | 2023-11-15 08:08 | PHA.VAN.FU ---
Vancomycin Assessment / Plan
- Assessment
Renal Function: Stable
WBC's are: WNL
In the past 24 hrs, patient has been: Afebrile
- Assessment - Therapeutic Drug Monitoring
Extrapolated Cmax (mcg/mL): 27.8
Peak level was drawn: Appropriately (drawn ~1H after end of previous infusion)
Extrapolated Cmin (mcg/mL): 9.9
Trough Drawn: Appropriately
Levels were drawn: At steady state (levels drawn after 4th maintenance dose)
Calculated AUC (mcg*h/mL): 419
Calculated ke: 0.0936
Calculated half life (H): 7.4
Calculated Vd (L): 38
Calculated Vanc CL (ml/min): 60
- Dosing Plan
Continue: Vanc 750mg Q12H
- Monitoring Plan
Level(s) appropriate: Recheck trough at minimum of weekly intervals, Repeat sooner for changes in renal function or clinical status
Next Level Due (Date): ~11/21
- Follow Up
Pharmacy will continue to follow.
Vancomycin Follow UP
- -
Patient Age: 58
Patient Sex: Female
Vancomycin Day #: 4
Indication: Skin And Soft Tissue
Requesting Provider: Jimbo Levin / [place]
Pertinent Antimicrobial Allergies:
Penicillins - Unknown
Height / Weight:
Height 5 ft 4 in
Actual Weight 69.088 kg
Pertinent Past Medical History: FAILED OUTPT [place]
- Vital Signs / Lab Results
Temp Pulse Resp BP Pulse Ox
97.9 F 93 17 127/77 99
11/14/23 23:05 11/14/23 23:05 11/14/23 23:05 11/14/23 23:05 11/14/23 23:05
Lab Results - Hematology
11/12/23 11/13/23 11/14/23
16:45 06:55 05:46
WBC 13.6 H 10.6 10.1
11/15/23
05:09
WBC 9.5
Lab Results - Chemistry
11/12/23 11/13/23 11/14/23
16:45 06:55 05:46
BUN 10 8 9
Creatinine 0.6 0.6 0.6
Estimated Creat Clear 87 87
Albumin 4.6
11/15/23
05:09
BUN 9
Creatinine 0.6
Estimated Creat Clear 87
Albumin
Microbiology Results
11/13/23 13:57 Wound Culture - Preliminary
Hand - Right Staph aureus MRSA
Gram Stain - Preliminary
11/13/23 11:39 Blood Culture - Preliminary
Blood/Venous No Growth in 24 hours- Final report to follow
11/13/23 10:57 Blood Culture - Preliminary
Blood/Venous No Growth in 24 hours- Final report to follow
Therapeutic Drug Monitoring
Vancomycin Peak 25.0 ug/ml (18-26) 11/14/23 20:17
Vancomycin Trough 10.9 ug/ml (5-20) 11/15/23 05:09
[2023-11-15] MEDS: APRESOLINE 5 MG IV (09:06)
--- NOTE | 2023-11-15 09:15 | W.PN.UPDATE ---
Update Note
Progress Note Update
58-year-old female admitted with localized infection about the radial aspect of her MP joint. She underwent debridement localized yesterday. She reports minimal improvement of her pain and symptoms.
-There is erythema within approximately 1 cm wound with expressible purulence. Sensation is intact to light touch distally. Nontender in the flexor tendon sheath, not in a rested flexed position. No pain with passive stretch. No whole digit
swelling
Patient was discussed with attending Dr. Loving. Given the slow improvement of her symptoms we will proceed with operating room today for debridement, irrigation and closure with Dr. Loving. Will update postoperative recommendations
-Continue n.p.o.
-Consent previously signed and in chart
--- NOTE | 2023-11-15 10:52 | PN.CDI ---
CDI
- -
CDI:
Physician Documentation Request
Admit Date: 11/12/23 18:48
Dear Doctor Inder,
Patient admitted with cellulitis with abscess.
11/13 Update Note: 'bedside I&D performed sterilely to both abscess areas of the dorsal right index finger. Significant purulent material expressed.'
11/14 Update Note: 'She underwent debridement localized yesterday.'
Could you provide, in the progress notes further clarification regarding the debridement.
Please specify the type of debridement performed:
1. Excisional Debridement - defined as removal by excision of devitalized tissue, necrosis or slough
2. Non-excisional debridement - defined as removal of devitalized tissue, necrosis or slough by such methods as irrigation, brushing, scrubbing or washing.
If the debridement was excisional, please also include:
1. Type of instrument used (#11 blade, #15 blade etc.)
2. What was excised (necrotic tissue, gangrenous tissue, slough etc.)
For excisional or non-excisional, please also include:
1. Depth of debridement (skin, subcutaneous tissue, fascia, muscle, bone etc)
2. Size and appearance of the wound (L, W, D, color of wound, drainage)
Use of terms such as suspected, likely, concern for, or probable (associated with a specific diagnosis that is being evaluated, monitored, or treated as if it exists) are acceptable and can be coded in the inpatient setting, when documented at the
time of discharge.
Thank you,
Mimi Orellana RN, BSN
CDI Specialist
Available via [place] text
Please use your independent medical judgment in providing your response.
[2023-11-15] MEDS: DILAUDID 0.5 MG IV ×2 (13:13→13:30)
--- NOTE | 2023-11-15 13:48 | W.PN.HOSP.TC ---
Today's Communication/Plan
-
OR today for debridement, irrigation and closure
Cont vanc
Assessment / Plan
Assessment / Plan
Physical Exam
Constitutional: No Acute Distress
Cardiovascular: Regular Rate and S1/S2; Negative Murmur or Rub
Pulmonary: Clear and Symmetric; Negative Wheezes, Rales or Rhonchi
Gastrointestinal: Soft, Non Tender, Non Distended and Normal Bowel Sounds
Extremities: Other (right second digit marked swelling, warmth and erythema; no discrete fluctuant lesion)
Skin: Warm and Dry; Negative Rash or Jaundice
#Paronychia with abscess
#Cellulitis
-Ortho, ID consulted
-Cont vanco
-Warm compresses, elevation
-F/u ortho: debridement, irrigation and closure with Dr. Loving tentatively today
-F/u cultures, MRSA
-warm water soaks 3 times daily with soft dressing between
#Hypokalemia
-monitor and replete
# DJD/muscle spasm
-Baclofen continued
-Hydrocodone continued
# Depression/anxiety
-Citalopram and clonazepam continued
# Hypothyroidism
-Levothyroxine
# Hyperlipidemia
-Statin
# DVT prophylaxis
-Lovenox subcu
# CODE STATUS
-Full code
Anticipated Discharge: 24 - 48 hours
Subjective/Interval History
-
Date of Service: November 15, 2023
slow improvement
Objective Data
-
Labs:
Laboratory Results
11/15/23
05:09
WBC 9.5
Hgb 13.1
Hct 39.2
Plt Count 346
Sodium 138
Potassium 3.8
Chloride 105
Carbon Dioxide 26
BUN 9
Creatinine 0.6
Glucose 101 H
Calcium 9.5
Vital Signs:
Vital Signs
Temp Pulse Resp BP Pulse Ox
98.4 F 81 11 160/101 95
11/15/23 13:05 11/15/23 13:30 11/15/23 13:30 11/15/23 13:30 11/15/23 13:45
I&O
11/14/23 11/15/23 11/16/23
06:59 06:59 06:59
Intake Total 900 / 900 600 / 600
Balance 900 / 900 600 / 600
Review of Systems
-
History Source: Patient
All other systems: Not reviewed unless documented
Data Reviewed
-
CT Scan: Image personally visualized and interpreted and Report Reviewed by me
Labs: Labs Reviewed by me
--- NOTE | 2023-11-15 14:07 | PTCARENOTE ---
Report received from PACU, RN. Pt AAOx3, resting comfortably in bed. R index finger dressed from OR with iodoform packing, noam, xeroform, and coband
--- NOTE | 2023-11-15 16:12 | CM ---
CM following for d/c planning
OR today for debridement, irrigation and closure of right hand wound
CM will follow for d/c needs - declined HH in past
Anticipate home no needs
--- NOTE | 2023-11-15 17:22 | W.PN.ID1 ---
Date of Service
Date of Service: November 15, 2023
Today's Communication
- wound culture with MRSA - sensi back
- continue vancomycin today, switch to doxycycline in the am for 14 more days
- follow up with me in about 2 weeks
Assessment / Plan
Paronychia with abscess
Cellulitis
H/o allergy to penicillin - as a child, not retried
- s/p washout 11/14
- blood cultures x2 no growth to date
- wound culture with MRSA - sensi back
- continue vancomycin today, switch to doxycycline in the am for 14 more days
- follow up with me in about 2 weeks
Chief Complaint
-: Other (paronichya)
Subjective / Review of Systems
s/p I&D today
much improved
tolerating current therapies
no complaints
Vital Signs / Physical Exam
Vital Signs
Vital Signs
Temp Pulse Resp BP Pulse Ox
98.9 F 84 16 154/100 95
11/15/23 13:58 11/15/23 13:45 11/15/23 13:45 11/15/23 14:34 11/15/23 13:58
Physical Exam
Constitutional: No Acute Distress
Cardiovascular: Regular Rate and S1/S2; Negative Murmur or Rub
Pulmonary: Clear and Symmetric; Negative Wheezes or Rales
Gastrointestinal: Soft, Non Tender, Non Distended and Normal Bowel Sounds
Skin: Warm and Dry; Negative Rash or Jaundice
Wound: Other (dressing clean, dry, intact)
Objective Data
Lab Data
Lab Results
11/15/23 05:09
11/15/23 05:09
Estimated Creat Clear 87 ml/min 11/15/23 05:09
Total Bilirubin 0.5 mg/dl (0.2-1.3) 11/12/23 16:45
AST 16 U/L (14-36) 11/12/23 16:45
ALT 11 U/L (0-35) 11/12/23 16:45
Alkaline Phosphatase 93 U/L (38-126) 11/12/23 16:45
Most recent labs reviewed.
Micro Results:
11/15/23 12:06 Wound Culture - Pending
Finger - Right Gram Stain - Preliminary
11/15/23 12:06 Anaerobic Culture - Pending
Finger - Right
11/13/23 11:39 Blood Culture - Preliminary
Blood/Venous No Growth in 48 hours- Final report to follow
11/13/23 10:57 Blood Culture - Preliminary
Blood/Venous No Growth in 48 hours- Final report to follow
11/13/23 13:57 Wound Culture - Final
Hand - Right Staph aureus MRSA
Gram Stain - Final
[2023-11-15] MEDS: LOVENOX 40 MG SC (17:31)
[2023-11-15] MEDS: TYLENOL 650 MG PO (20:38)
[2023-11-15] MEDS: KLONOPIN 0.5 MG PO (21:37)
[2023-11-16 00:25] VITALS: BP 125/80
[2023-11-16 03:25] VITALS: BP 129/92
[2023-11-16] MEDS: SYNTHROID 50 MCG PO (06:21)
[2023-11-16] MEDS: VIBRAMYCIN 100 MG PO ×2 (06:22→17:46)
[2023-11-16] MEDS: NORCO 7.5/325 1 TABLET PO ×3 (06:28→21:41)
[2023-11-16 07:22] VITALS: BP 162/68
[2023-11-16 07:39] LABS: Blood Urea Nitrogen 13 mg/dl (7-17); Calcium 10.1 mg/dl (8.4-10.2); Carbon Dioxide 27 mmol/L (22-30); Chloride 101 mmol/L (98-107); Estimated Creatinine Clearance 87 ml/min; Glucose 105 mg/dl (70-99); Sodium 139 mmol/L (135-145); eGFR > 60.00
[2023-11-16 09:28] LABS: Hematocrit 41.8 % (37.0-47.0); Hemoglobin 14.1 g/dL (12.0-16.0); Mean Corp Hgb Conc. 33.7 g/dL (33.0-37.0); Mean Corpuscular Hgb 29.1 pg (27.0-31.0); Mean Corpuscular Volume 86.4 fL (81.0-99.0); Mean Platelet Volume 9.5 fL (7.4-10.4); Platelet Count 446 10^3/uL (130-400); Red Blood Cell Count 4.84 10^6/uL (4.20-5.40); Red Cell Dist. Width 13.1 % (11.5-14.5); White Blood Cell Count 15.9 10^3/uL (4.8-10.8)
[2023-11-16] MEDS: CELEXA 20 MG PO (09:32)
[2023-11-16] MEDS: CRESTOR PO (09:34)
--- NOTE | 2023-11-16 10:16 | W.PN.UPDATE ---
Update Note
Progress Note Update
58-year-old female who is POD #1 status post I&D was evacuation of abscess right index finger.
Patient reports she is doing much better this morning in terms of pain.
Dressing removed to reveal incision to be clean, dry, and intact. Packing in place. No evidence of surrounding erythema or purulent material expressed from incision.
Packing removed and dry dressing placed over right index finger.
Continue antibiotics per ID recommendations-cultures growing MRSA.
Continue warm water soaks 3 times per day.
Will reassess in the morning and likely be able to discharge home with close follow-up in the office.
--- NOTE | 2023-11-16 12:46 | W.PN.HOSP.TC ---
Today's Communication/Plan
-
Dressing changes per orthopedics
Continue doxycycline
Tentative discharge tomorrow
Assessment / Plan
Assessment / Plan
Physical Exam
Constitutional: No Acute Distress
Cardiovascular: Regular Rate and S1/S2; Negative Murmur or Rub
Pulmonary: Clear and Symmetric; Negative Wheezes, Rales or Rhonchi
Gastrointestinal: Soft, Non Tender, Non Distended and Normal Bowel Sounds
Extremities: Other (dressing placed over right index finger
Skin: Warm and Dry; Negative Rash or Jaundice
#Paronychia with abscess
#Cellulitis
� MRSA growing
-Ortho, ID consulted
-POD #1 status post I&D for evacuation of abscess right index finger
� Wound care as per orthopedics
� Continue warm water soaks 3 times per day
-Continue doxycycline for 14 days
� Follow-up ID, orthopedics outpatient
#Leukocytosis
Is most likely acute stress secondary to intervention
Continue to monitor fever curve, white count
#Hypokalemia
-monitor and replete
# DJD/muscle spasm
-Baclofen continued
-Hydrocodone continued
# Depression/anxiety
-Citalopram and clonazepam continued
# Hypothyroidism
-Levothyroxine
# Hyperlipidemia
-Statin
# DVT prophylaxis
-Lovenox subcu
# CODE STATUS
-Full code
Anticipated Discharge: Within 24 hours
Subjective/Interval History
-
Date of Service: November 16, 2023
I&D yesterday, packing removed and dry dressing placed over right finger today
Objective Data
-
Labs:
Laboratory Results
11/16/23
06:32
WBC 15.9 H
Hgb 14.1
Hct 41.8
Plt Count 446 H D
Sodium 139
Potassium 4.0
Chloride 101
Carbon Dioxide 27
BUN 13
Creatinine 0.6
Glucose 105 H
Calcium 10.1
Vital Signs:
Vital Signs
Temp Pulse Resp BP Pulse Ox
98.3 F 84 16 162/68 98
11/16/23 07:22 11/16/23 07:22 11/16/23 07:22 11/16/23 07:22 11/16/23 07:22
I&O
11/15/23 11/16/23 11/17/23
06:59 06:59 06:59
Intake Total 600 / 600 1150 / 1150
Balance 600 / 600 1150 / 1150
Review of Systems
-
History Source: Patient
All other systems: Not reviewed unless documented
Data Reviewed
-
CT Scan: Image personally visualized and interpreted and Report Reviewed by me
Labs: Labs Reviewed by me
[2023-11-16] MEDS: LIORESAL 10 MG PO ×2 (14:41→21:41)
[2023-11-16 15:00] VITALS: BP 145/100
[2023-11-16] MEDS: LOVENOX 40 MG SC (17:46)
[2023-11-16] MEDS: KLONOPIN 0.5 MG PO (21:41)
[2023-11-16 23:55] VITALS: BP 125/80
[2023-11-17] MEDS: VIBRAMYCIN 100 MG PO (05:37)
[2023-11-17] MEDS: SYNTHROID 50 MCG PO (05:37)
[2023-11-17 07:31] LABS: Hematocrit 37.4 % (37.0-47.0); Hemoglobin 12.6 g/dL (12.0-16.0); Mean Corp Hgb Conc. 33.7 g/dL (33.0-37.0); Mean Corpuscular Hgb 29.2 pg (27.0-31.0); Mean Corpuscular Volume 86.6 fL (81.0-99.0); Mean Platelet Volume 9.3 fL (7.4-10.4); Platelet Count 341 10^3/uL (130-400); Red Blood Cell Count 4.32 10^6/uL (4.20-5.40); Red Cell Dist. Width 13.2 % (11.5-14.5); White Blood Cell Count 9.4 10^3/uL (4.8-10.8)
[2023-11-17 07:43] VITALS: BP 153/97
[2023-11-17 08:09] LABS: Blood Urea Nitrogen 16 mg/dl (7-17); Calcium 9.4 mg/dl (8.4-10.2); Carbon Dioxide 30 mmol/L (22-30); Chloride 101 mmol/L (98-107); Estimated Creatinine Clearance 75 ml/min; Glucose 89 mg/dl (70-99); Potassium 3.7 mmol/L (3.5-5.1); Sodium 138 mmol/L (135-145); eGFR > 60.00
[2023-11-17] MEDS: CRESTOR 10 MG PO (08:56)
[2023-11-17] MEDS: CELEXA 20 MG PO (08:56)
[2023-11-17] MEDS: NORCO 7.5/325 1 TABLET PO (09:30)
--- NOTE | 2023-11-17 10:14 | W.PN.UPDATE ---
Update Note
Progress Note Update
58-year-old female who is POD #2 status post I&D with evacuation of abscess right index finger.
Patient reports she is doing well in regards to no pain and has been doing her warm water soaks.
Dressing off on my arrival. Mild diffuse swelling of proximal finger with no tenderness to palpation. No erythema. No drainage or expressable material.
New dry dressing placed with adaptic, gauze, and kerlix. Incision to be covered when not performing soaks until sutures removed.
Continue antibiotics per ID recommendations-cultures growing MRSA. Doxycycline PO x 14 days.
Continue warm water soaks 3 times per day at outpatient.
Stable for d/c home. Instructed to contact the office to make appt for post op visit in 10 days. Call sooner with worsening of symptoms.
--- NOTE | 2023-11-17 11:52 | CM ---
Received notification of patient's discharge from attending. Met with patient who was agreeable to d/c. IMM on chart.
Plan: Case management will continue to follow and assist with discharge planning. Home.
--- NOTE | 2023-11-17 11:53 | W.PN.HOSP.TC ---
Addendum entered and electronically signed by Elmo Heller MD 11/17/23 15:48:
[id number]
Original Note:
Today's Communication/Plan
-
� Wound care as per orthopedics
� Continue warm water soaks 3 times per day
-Incision to be covered when not performing soaks until sutures removed.
-Continue doxycycline for 14 days total
� Follow-up ID (appx 2 weeks), orthopedics outpatient (10 days)
-f/u pcp, orthopedics, ID outpatient
Assessment / Plan
Assessment / Plan
Physical Exam
Constitutional: No Acute Distress
Cardiovascular: Regular Rate and S1/S2; Negative Murmur or Rub
Pulmonary: Clear and Symmetric; Negative Wheezes, Rales or Rhonchi
Gastrointestinal: Soft, Non Tender, Non Distended and Normal Bowel Sounds
Extremities: Mild diffuse swelling of proximal finger with no tenderness to palpation.� No erythema.� No drainage or expressable material.
Skin: Warm and Dry; Negative Rash or Jaundice
#Paronychia with abscess
#Cellulitis
� MRSA growing
-Ortho, ID consulted
-POD #2 status post I&D for evacuation of abscess right index finger
� Wound care as per orthopedics
� Continue warm water soaks 3 times per day
-Incision to be covered when not performing soaks until sutures removed.
-Continue doxycycline for 14 days total
� Follow-up ID (appx 2 weeks), orthopedics outpatient (10 days)
#Leukocytosis
2/2 to cellulitis/abscess
-Continue to monitor fever curve, white count
-resolved
-see plan above
#Hypokalemia
-monitor and replete
# DJD/muscle spasm
-Baclofen continued
-Hydrocodone continued
# Depression/anxiety
-Citalopram and clonazepam continued
# Hypothyroidism
-Levothyroxine
# Hyperlipidemia
-Statin
# DVT prophylaxis
-Lovenox subcu
# CODE STATUS
-Full code
More than 30 minutes spent in discharge including
Final examination of the patient
Summarizing hospital stay
Instructions for continuing care to all relevant caregivers
Preparation of discharge records, prescriptions, and referral forms
Total time spent (35 in minutes):
Anticipated Discharge: Today
Subjective/Interval History
-
Date of Service: November 17, 2023
swelling, erythema improved
Objective Data
-
Labs:
Laboratory Results
11/17/23
05:37
WBC 9.4
Hgb 12.6
Hct 37.4
Plt Count 341 D
Sodium 138
Potassium 3.7
Chloride 101
Carbon Dioxide 30
BUN 16
Creatinine 0.7
Glucose 89
Calcium 9.4
Vital Signs:
Vital Signs
Temp Pulse Resp BP Pulse Ox
98.3 F 98 16 153/97 99
11/17/23 07:43 11/17/23 07:43 11/17/23 07:43 11/17/23 07:43 11/17/23 07:43
I&O
11/16/23 11/17/23 11/18/23
06:59 06:59 06:59
Intake Total 1150 / 1150 1380 / 1380
Balance 1150 / 1150 1380 / 1380
Review of Systems
-
History Source: Patient
All other systems: Not reviewed unless documented
Data Reviewed
-
CT Scan: Image personally visualized and interpreted and Report Reviewed by me
Labs: Labs Reviewed by me
--- NOTE | 2023-11-17 12:00 | W.DS.TRANS ---
DC Summary - [employer]
-
Discharge Instructions:
Discharge Diagnosis/Procedures Paronychia with abscess
Cellulitis
Diet Low Cholesterol,Low Fat
Instructions:
Stand-Alone Forms:
Changes to Home Medications: Yes
Discharge Medications:
DC Medications w/original date entered in e|tab
Vitamin K 1 tab PO DAILY Supplement 11/12/23
baclofen 10 mg tablet 10 mg PO TID PRN muscle spasms 11/12/23
biotin 1 mg tablet 1 mg PO DAILY Supplement 11/12/23
citalopram 20 mg tablet 20 mg PO DAILY depression 11/12/23
clonazepam 0.5 mg tablet 0.5 mg PO HS anxiety 11/12/23
cyanocobalamin (vitamin B-12) 1,000 mcg tablet (Vitamin B-12) 1,000 mcg PO DAILY Supplement 11/12/23
hydrocodone 10 mg-acetaminophen 325 mg tablet 1 tab PO QID PRN moderate pain 11/12/23
levothyroxine 50 mcg tablet 50 mcg PO DAILY@0700 hypothyroidism 11/12/23
rosuvastatin 10 mg tablet 10 mg PO DAILY High Cholesterol 11/12/23
turmeric 400 mg capsule 400 mg PO DAILY Supplement 11/12/23
doxycycline hyclate 100 mg capsule 100 mg PO Q12H 13 days #26 caps 11/17/23
Home Medication Changes
doxycycline hyclate 100 mg capsule 100 mg PO Q12H 13 days #26 caps 11/17/23
Pending Results: No
--- NOTE | 2023-11-26 12:45 | W.PN.UPDATE ---
Update Note
Progress Note Update
Bedside I&D of 2 different locations on the right index finger, performed on November 23 was non-excisional and extended into the subcutaneous tissues. A significant amount of purulent material was expressed at each site and a loose sterile dressing
was applied post procedure. Instructed to continue warm water soaks TID. Continue IV ABX.
== END 2023-11-17 14:03 | disposition home or self-care (01) | DRG 982 ==
LOC: 3 WEST ACU 18:48
PROVIDERS: Orthopaedic Surgery Hand Surgery; Registered Nurse; ADMITTING PHYSICIAN Internal Medicine; CONSULT PHYSICIAN Orthopaedic Surgery; CONSULT PHYSICIAN Student in an Organized Health Care Education/Training Program; EMERGENCY PHYSICIAN Emergency Medicine; FAMILY PHYSICIAN Family Medicine
PROC: 0LB70ZZ Excision of Right Hand Tendon, Open Approach (ICD-10-PCS; 2023-11-12)
DX: L03.011 Cellulitis of right finger (principal); F11.20 Opioid dependence, uncomplicated; L02.511 Cutaneous abscess of right hand; Z87.891 Personal history of nicotine dependence; M62.838 Other muscle spasm; F41.9 Anxiety disorder, unspecified; F32.A Depression, unspecified; E03.9 Hypothyroidism, unspecified; E78.00 Pure hypercholesterolemia, unspecified; E87.6 Hypokalemia
CPT/HCPCS: 73130; 73201; 80048; 80053; 80202; 85025; 85027; 87040; 87070; 87075; 87147; 87186; 87205; 93005; 99285; Q9967